=== PATIENT | female | born 1980 | race Caucasian/White ===

== ENCOUNTER → 2017-11-26 | Outpatient (CLI) | payer BC ==
[~2017-11-26] MED LIST: AGM875T PO
--- NOTE | 2017-11-26 13:12 | Diagnostic Imaging Report ---
EXAMINATION: Digital mammogram bilateral screening with 3D tomosynthesis and CAD. INDICATION: Screening. COMPARISON: This is the patient's baseline study. PERSONAL HISTORY: At this time, there are no current complaints. FINDINGS: The fibroglandular tissue in both breasts is heterogeneously dense. This does limit the sensitivity of this exam. There is no primary or secondary sign of malignancy noted. There is a small benign-appearing nodular density in the upper-outer aspect of the right breast. This may represent a lymph node. IMPRESSION: 1. There is no evidence for malignancy. 2. The patient should have her annual bilateral screening mammography on schedule in November 2018. ACR BI-RADS Category 1: Negative. Result letter will be mailed to the patient. Note: At least 10% of breast cancer is not imaged by mammography. Dictated by: Dictated on workstation # [id number]
== END ==
LOC: RAD 07:46
PROVIDERS: ATTEND Obstetrics & Gynecology
DX: Z12.31 Encounter for screening mammogram for malignant neoplasm of breast (principal); Z80.3 Family history of malignant neoplasm of breast
CPT/HCPCS: 77067

== ENCOUNTER → 2018-01-20 | Outpatient (CLI) | payer BC ==
--- NOTE | 2018-01-20 08:44 | Diagnostic Imaging Report ---
PROCEDURE: US Thyroid. TECHNIQUE: Multiple real-time grayscale images were obtained of the thyroid in various projections. INDICATION: Abnormal weight gain. FINDINGS: The right lobe of the thyroid measures 5.4 x 1.8 x 1.8 cm and the left lobe measures 5.3 x 1.7 x 1.6 cm. Both lobes demonstrate a homogeneous echotexture. No discrete thyroid mass is detected. IMPRESSION: Unremarkable thyroid ultrasound. Dictated by: Dictated on workstation # [id number]
== END ==
LOC: RAD 07:57
PROVIDERS: ATTEND Family Medicine
DX: R63.5 Abnormal weight gain (principal); F41.9 Anxiety disorder, unspecified
CPT/HCPCS: 76536

== ENCOUNTER → 2018-11-20 | Outpatient (CLI) | payer BC ==
--- NOTE | 2018-11-20 19:23 | Diagnostic Imaging Report ---
INDICATION: Screening. Digital mammogram bilateral screening with 3D tomosynthesis. The current study was also evaluated with a Computer Aided Detection (CAD) system. This study was compared to the prior exam of 11/26/2017. At this time, there are no current complaints. FINDINGS: The fibroglandular tissue in both breasts is heterogeneously dense. This does limit the sensitivity of this exam. Overall, there does not appear to have been any significant change when compared to the prior study. No primary or secondary sign of malignancy is noted. 3D tomographic images fail to show any sign of malignancy. IMPRESSION: There is no radiographic evidence for malignancy. ACR BI-RADS Category 1: Negative. Result letter will be mailed to the patient. Note: At least 10% of breast cancer is not imaged by mammography. Dictated by: Dictated on workstation # [id number]
== END ==
LOC: RAD 07:26
PROVIDERS: ATTEND Obstetrics & Gynecology
DX: Z12.31 Encounter for screening mammogram for malignant neoplasm of breast (principal); Z80.3 Family history of malignant neoplasm of breast
CPT/HCPCS: 77067

== ENCOUNTER → 2021-10-29 | Outpatient (CLI) | payer BC ==
--- NOTE | 2021-10-29 10:02 | Diagnostic Imaging Report ---
INDICATION: Routine screening. COMPARISON: 11/20/2018 and 11/26/2017. TECHNIQUE: 2D and 3D bilateral screening mammography was performed with CAD. FINDINGS: Both breasts are heterogeneously dense, limiting the sensitivity of mammography. A circumscribed benign nodule in the outer right breast appears stable. No spiculated mass or malignant-appearing microcalcifications are seen. The axillae are unremarkable. IMPRESSION: No mammographic features suspicious for malignancy are identified. ACR BI-RADS Category 2: Benign findings. Result letter will be mailed to the patient. Note: At least 10% of breast cancer is not imaged by mammography. Dictated by: Dictated on workstation # [id number]
== END ==
LOC: RAD 08:30
PROVIDERS: ATTEND Obstetrics & Gynecology
DX: Z12.31 Encounter for screening mammogram for malignant neoplasm of breast (principal)
CPT/HCPCS: 77063; 77067

== ENCOUNTER 2022-06-17 07:44 | Outpatient (CLI) | payer BC ==
[~2022-06-17] VITALS: Ht 160 cm; Wt 84.3 kg
[2022-06-17 08:20] VITALS: BP 140/63
[2022-06-17 08:39] LABS: BILIRUBIN,URINE NEGATIVE (NEGATIVE); CLARITY,URINE CLEAR; COLOR,URINE YELLOW; GLUCOSE, URINE (UA) NEGATIVE (NEGATIVE); KETONES,URINE NEGATIVE (NEGATIVE); LEUKOCYTE ESTERASE ,URINE 3+ (NEGATIVE); NITRITE,URINE NEGATIVE (NEGATIVE); PH,URINE 6.5 (5-9); PROTEIN,URINE NEGATIVE (NEGATIVE)
[2022-06-17] MEDS ORDERED: D5 LR IV SOLUTION 1,000 ML IV SCH (08:45)
[2022-06-17 08:55] VITALS: BP 118/61
[2022-06-17 08:56] LABS: BACTERIA,URINE FEW /HPF
--- NOTE | 2022-06-18 08:37 | Physician Query-Final Dx ---
LORRI,06/18/22 0837: Clinic Account Progress/Dx Physician Query: Please give diagnosis Please include # weeks gestation Date of Service Jun 17, 2022 at 07:44 PACO LUNDY MD 06/18/22 1850: Clinic Account Progress/Dx DIAGNOSIS: Diagnosis 31 weeks with false labor LORRI,JulJun 18, 2022 08:37 PACO LUNDY MD Jun 18, 2022 18:50
== END 2022-06-17 12:42 | disposition home or self-care (01) ==
LOC: LDRP 07:44 → WSo 07:44
PROVIDERS: ATTEND Obstetrics & Gynecology
DX: O47.03 False labor before 37 completed weeks of gestation, third trimester (principal); R42 Dizziness and giddiness; Z3A.31 31 weeks gestation of pregnancy
CPT/HCPCS: 81000; 87077; 87088; 93005

== ENCOUNTER → 2022-06-26 | Outpatient (CLI) | payer BC | LOC: CARD 11:38 | PROVIDERS: ATTEND Internal Medicine Cardiovascular Disease | DX: O99.413 Diseases of the circulatory system complicating pregnancy, third trimester (principal); I51.7 Cardiomegaly; Z3A.33 33 weeks gestation of pregnancy | CPT/HCPCS: 93306 ==

== ENCOUNTER → 2022-07-08 | Outpatient (CLI) | payer BC | LOC: LABNPT 12:23 | PROVIDERS: ATTEND Obstetrics & Gynecology | DX: R80.9 Proteinuria, unspecified (principal) | CPT/HCPCS: 82570; 84156 ==

== ENCOUNTER 2022-07-15 00:18 | Inpatient (IN) | payer BC ==
[~2022-07-15] VITALS: Ht 160 cm; Wt 85.3 kg
[2022-07-15] VITALS (15 sets, daily range): BP systolic 108–147; BP diastolic 56–73
[2022-07-15] MEDS ORDERED: AMPICILLIN FOR IV USE 2,000 MG in NS (IVPB) 50 ML IV SCH (00:32)
[2022-07-15] MEDS ORDERED: SERT50TA2 PO (00:32)
[2022-07-15] MEDS ORDERED: ASPI-999 PO (00:32)
[2022-07-15] MEDS ORDERED: PREN1TAB79 PO (00:32)
[2022-07-15] MEDS ORDERED: D5 LR IV SOLUTION 1,000 ML IV SCH (00:45)
[2022-07-15] MEDS ORDERED: AMPICILLIN 2,000 MG/14.8 ML (IV USE) ONE ×2 (00:48→00:53)
[2022-07-15] MEDS ORDERED: NS (IVPB) 50 ML ONE ×2 (00:51→00:53)
[2022-07-15] MEDS ORDERED: fentaNYL 2 mcg/ml BUPIVA 0.125 100 ML ONE (00:58)
[2022-07-15 01:12] LABS: BASOPHILS % (AUTO) 0 % (0-10); EOSINOPHILS # (AUTO) 0.1 10^3/uL (0.0-0.3); EOSINOPHILS % (AUTO) 1 % (0-10); HEMATOCRIT 35 % (35-52); HEMOGLOBIN 11.2 g/dL (11.5-16.0); LYMPHOCYTES # (AUTO) 2.3 10^3/uL (1.0-4.0); LYMPHOCYTES % (AUTO) 24 % (12-44); MEAN CORPUSCULAR HEMOGLOBIN 27 pg (25-34); MEAN CORPUSCULAR HGB CONC 32 g/dL (32-36); MEAN CORPUSCULAR VOLUME 82 fL (80-99); MEAN PLATELET VOLUME 11.3 fL (9.0-12.2); MONOCYTES # (AUTO) 0.7 10^3/uL (0.0-1.0); MONOCYTES % (AUTO) 8 % (0-12); NEUTROPHILS # (AUTO) 6.4 10^3/uL (1.8-7.8); NEUTROPHILS % (AUTO) 67 % (42-75); PLATELET COUNT 273 10^3/uL (130-400); WHITE BLOOD COUNT 9.5 10^3/uL (4.3-11.0)
[2022-07-15] MEDS ORDERED: LIDOCAINE PF 2% 5 ML (XYLOCAINE) VIAL ONE (01:47)
[2022-07-15] MEDS ORDERED: fentaNYL INJ 100 MCG/2 ML AMP ONE (01:47)
[2022-07-15] MEDS ORDERED: LACTATED RINGERS 1,000 ML IV SCH (02:30)
[2022-07-15] MEDS ORDERED: METOCLOPRAMIDE INJ 10 MG/2 ML (REGLAN) IV PRN (02:30)
[2022-07-15] MEDS ORDERED: ONDANSETRON 4 MG/2 ML (SDV) Z0FRAN IV PRN (02:30)
[2022-07-15] MEDS ORDERED: fentaNYL 2 mcg/ml BUPIVA 0.125 100 ML EPI SCH (02:30)
[2022-07-15] MEDS ORDERED: diphenhydrAMINE 50 MG/ML INJ (BENADRYL) IV PRN (02:30)
[2022-07-15] MEDS ORDERED: NALOXONE 0.4 MG/ML 1 ML (NARCAN) VIAL IV PRN ×2 (02:30)
[2022-07-15] MEDS ORDERED: OXYTOCIN PRE-MIX DRIP 500 ML IV ONE (03:01)
--- NOTE | 2022-07-15 04:33 | History & Physical ---
History and Physical Date Seen by Provider: Jul 15, 2022 Time Seen by Provider: 04:29 This patient is a 42-year-old 3 para 2 female currently at 35 weeks gestation in a complicated by PIH and gestational diabetes type A1. She presented in the early hours of the morning with complaint of spontaneous rupture of membranes and early labor. She was about 5 cm dilated on admission. She progressed relatively rapidly and has now delivered by spontaneous vaginal livery. This patient is further complicated by advanced maternal age. GBS culture has not been obtained as patient only now obtained 35 weeks gestation. On admission she was started on ampicillin for GBS prophylaxis. Allergies are none Medications are vitamins Medical social and surgical histories are per the antepartum record HEENT exam is normal Neck is supple no lymphadenopathy no thyromegaly Abdomen is gravid soft nontender nondistended Extremities show no clubbing or cyanosis. There is no Homans' sign. Pelvic exam on my arrival showed a cervix completely dilated vertex presentation +2 to +3 station with gross ROM. monitor showed a normal/category 1 heart rate pattern with contractions every 2 to 3 minutes. Laboratory Tests Test 07/15/22 00:45 07/15/22 01:26 07/15/22 03:37 Range/Units White Blood Count 9.5 4.3-11.0 10^3/uL Red Blood Count 4.23 3.80-5.11 10^6/uL Hemoglobin 11.2 L 11.5-16.0 g/dL Hematocrit 35 35-52 % Mean Corpuscular Volume 82 80-99 fL Mean Corpuscular Hemoglobin 27 25-34 pg Mean Corpuscular Hemoglobin Concent 32 32-36 g/dL Red Cell Distribution Width 15.1 H 10.0-14.5 % Platelet Count 273 130-400 10^3/uL Mean Platelet Volume 11.3 9.0-12.2 fL Immature Granulocyte % (Auto) 1 % Neutrophils (%) (Auto) 67 42-75 % Lymphocytes (%) (Auto) 24 12-44 % Monocytes (%) (Auto) 8 0-12 % Eosinophils (%) (Auto) 1 0-10 % Basophils (%) (Auto) 0 0-10 % Neutrophils # (Auto) 6.4 1.8-7.8 10^3/uL Lymphocytes # (Auto) 2.3 1.0-4.0 10^3/uL Monocytes # (Auto) 0.7 0.0-1.0 10^3/uL Eosinophils # (Auto) 0.1 0.0-0.3 10^3/uL Basophils # (Auto) 0.0 0.0-0.1 10^3/uL Immature Granulocyte # (Auto) 0.1 0.0-0.1 10^3/uL Glucose Level 83 70-105 MG/DL Glucometer 112 H 70-110 MG/DL Assessment and plan 35 weeks gestation with P PROM and labor complicated by PIH/AMA/gestational diabetes type A1 .See delivery note 35 weeks gestation with P PROM and labor Allergies and Home Medications Allergies Coded Allergies: No Known Drug Allergies (Unverified , 07/15/22) Patient Home Medication List Home Medication List Reviewed: Yes Aspirin (Aspirin) 81 Mg Tab.chew, 81 MG PO DAILY, (Reported) Entered as Reported by: OMAR DALEY on 07/15/2231 Last Action: New Order Vit W-Ca,Fe,FA(<1 mg) ( Vitamins) 27 Mg Iron-800 Mcg Tablet, 1 EACH PO DAILY, (Reported) Entered as Reported by: OMAR DALEY on 07/15/2231 Last Action: New Order Sertraline HCl (Zoloft) 50 Mg Tablet, 50 MG PO DAILY, (Reported) Entered as Reported by: OMAR DALEY on 07/15/2231 Last Action: New Order Discontinued Medications Amoxicillin/Clavulanate K (Augmentin 875 Mg Tablet) 875 Mg Tab, 1 TAB PO BID Discontinued Reason: No Longer Taking Prescribed by: YOVANI MASON on 08/27/14 8840 Last Action: Discontinued PACO LUNDY MD Jul 15, 2022 04:33
[2022-07-15] MEDS ORDERED: DOCU-143 PO (04:38)
[2022-07-15] MEDS ORDERED: IBUP-1780 PO (04:38)
[2022-07-15] MEDS ORDERED: OXYC-199 PO (04:38)
--- NOTE | 2022-07-15 04:38 | Discharge Inst-Surgical ---
Discharge Inst-Surgical Depart Medication/Instructions New, Converted or Re-Newed RX: Other Consults/Follow Up Orders & Referrals Follow Up Appt: Call to make follow up appt. for patient in 4 weeks. Activity Per routine post vaginal delivery instructions. Diet as tolerated Patient may shower or tub bathe as desired. Activity Activity as Tolerated: No Diet Discharge Diet: No Restrictions PACO LUNDY MD Jul 15, 2022 04:38
--- NOTE | 2022-07-15 04:41 | OB Labor & Delivery Record ---
Labor & Delivery This patient delivered by spontaneous vaginal delivery at 35+ weeks gestation a viable female with Apgars of 6 7 and 9 at 1 5 and 10 minutes respectively. The was delivered over first-degree perineal laceration under epidural analgesia. was bulb suctioned on delivery of the head again on completion of delivery. Dr. Camara was on hand at time of delivery. Umbilical cord when pulselesss was doubly clamped the father cut the cord the baby was passed to mom's abdomen. Cord bloods were obtained. The placenta delivered spontaneously Nena it was normal with a three-vessel cord. The cervix rectum perineum and vagina were examined and found intact except for a first-degree perineal laceration that was repaired with a single suture of 3-0 Vicryl Rapide in the usual manner. Hemostasis was complete. Sponge and needle counts were correct after delivery of the repair. Blood loss was around 150 cc. Patient tolerated delivery and repair well remained in the LDR the baby remained with the mom. PACO LUNDY MD Jul 15, 2022 04:41
[2022-07-15] MEDS ORDERED: ONDANSETRON 4 MG/2 ML (SDV) Z0FRAN IVP PRN (04:45)
[2022-07-15] MEDS ORDERED: KETOROLAC 30 MG/ML VIAL IV SCH (04:45)
[2022-07-15] MEDS ORDERED: BENZOCAINE/MENTHOL (DERMOPLAST) 56 ML CAN TP PRN (04:45)
[2022-07-15] MEDS ORDERED: oxyCODONE/APAP 5/325MG (PERCOCET 5) TABLET PO PRN (04:45)
[2022-07-15] MEDS ORDERED: OXYTOCIN PRE-MIX DRIP 500 ML IV SCH (04:45)
[2022-07-15] MEDS ORDERED: AMPICILLIN FOR IV USE 1,000 MG in NS (IVPB) 50 ML IV SCH (05:00)
[2022-07-15] MEDS ORDERED: CATHETER FLUSH 10 ML SYR IV SCH (06:00)
[2022-07-15] MEDS ORDERED: FLU QUADRIvalent (6 months+) 60 mcg/0.5 ml 2022-23 (Fluzone) IM ONE (08:00)
[2022-07-15] MEDS: DOCUSATE SODIUM 100 MG (COLACE) CAP PO SCH ×2 (09:09→21:30)
[2022-07-15] MEDS: IBUPROFEN 800 MG (MOTRIN) TAB PO SCH ×2 (11:48→17:57)
[2022-07-15] MEDS ORDERED: ENOXAPARIN INJECTION 30 MG/0.3 ML SYR SC ONE (15:00)
[2022-07-16] MEDS: IBUPROFEN 800 MG (MOTRIN) TAB PO SCH ×4 (00:22→18:33)
[2022-07-16 02:35] VITALS: BP 123/73
[2022-07-16] MEDS: DOCUSATE SODIUM 100 MG (COLACE) CAP PO SCH ×2 (08:09→23:31)
--- NOTE | 2022-07-16 08:09 | Progress Note ---
Standard Progress Note Progress Notes/Assess & Plan Date Seen by a Provider: Jul 16, 2022 Time Seen by a Provider: 08:07 Progress/Assessment & Plan This patient is without complaint except for some persistent right calf pain. She denies nausea or vomiting and denies headache and she denies shortness of breath. Patient is ambulating and voiding well. She has normal lochia. Vital Signs Date Time Temp Pulse Resp B/P (MAP) Pulse Ox O2 Delivery O2 Flow Rate FiO2 07/16/22 02:35 36.1 86 18 123/73 (90) 98 Room Air 07/15/22 21:30 36.8 94 18 127/62 (83) 98 Room Air 07/15/22 18:03 36.7 88 18 135/69 (91) 07/15/22 12:00 36.4 91 18 129/61 (83) Vital signs are stable. Patient is afebrile. The abdomen is benign. Fundus is firm below the umbilicus and nontender. Extremities show no clubbing or cyanosis. Right calf is equivocal for Homans' sign. Assessment and plan day #1. Patient did experience calf pain and a Homans' sign yesterday sonography was not available for rule out DVT therefore patient was given a dose of Lovenox subcu and Doppler studies are being obtained this morning. If positive she will continue on anticoagulation if negative we will discontinue the anticoagulation reassured the patient. Patient will continue with routine convalescent care and may be discharged home today or tomorrow as she prefers Final Diagnosis 35-week spontaneous vaginal delivery PACO LUNDY MD Jul 16, 2022 08:09
[2022-07-16 08:15] VITALS: BP 120/59
--- NOTE | 2022-07-16 08:36 | Diagnostic Imaging Report ---
PROCEDURE: US right lower extremity venous. TECHNIQUE: Multiple real-time grayscale images were obtained over the right lower extremity in various projections. Additional spectral analysis and color Doppler duplex images were also obtained. INDICATION: Right lower extremity pain . FINDINGS: Right lower extremity venous system showed normal color flow, normal compressibility and normal waveforms. Venous pulsatility normal. No deep or superficial thrombus. No mass or fluid collection documented. IMPRESSION: Normal negative unilateral right lower extremity venous Doppler and ultrasound exam. Dictated by: Dictated on workstation # [id number]
--- NOTE | 2022-07-16 08:51 | Anesthesia-Regional Post-Op ---
Regional Patient Condition Mental Status: Alert, Oriented x3 Circulation: Same as Pre-Op Headache: Absent Sensation: Full Recovery Motor Block: Absent Post Op Complications Complications None Follow Up Care/Instructions Patient Instructions None needed. Anesthesia/Patient Condition Patient is doing well, no complaints, stable vital signs, no apparent adverse anesthesia problems. No complications reported per nursing. [place] [facility] [place] Yes SHAYY SCALES CRNA Jul 16, 2022 08:51
[2022-07-16 12:00] VITALS: BP 123/58
[2022-07-16 16:00] VITALS: BP 137/60
[2022-07-16] MEDS ORDERED: FLU QUADRIvalent (6 months+) 60 mcg/0.5 ml 2022-23 (Fluzone) IM ONE (16:30)
[2022-07-16 23:35] VITALS: BP 125/70
[2022-07-17] MEDS: IBUPROFEN 800 MG (MOTRIN) TAB PO SCH ×3 (00:15→11:55)
[2022-07-17 06:15] VITALS: BP 138/68
--- NOTE | 2022-07-17 08:01 | Progress Note ---
Standard Progress Note Progress Notes/Assess & Plan Date Seen by a Provider: Jul 17, 2022 Time Seen by a Provider: 08:00 Progress/Assessment & Plan This patient is without complaint except for some persistent right calf pain. She denies nausea or vomiting and denies headache and she denies shortness of breath. Patient is ambulating and voiding well. She has normal lochia. Vital Signs Date Time Temp Pulse Resp B/P (MAP) Pulse Ox O2 Delivery O2 Flow Rate FiO2 07/16/22 02:35 36.1 86 18 123/73 (90) 98 Room Air 07/15/22 21:30 36.8 94 18 127/62 (83) 98 Room Air 07/15/22 18:03 36.7 88 18 135/69 (91) 07/15/22 12:00 36.4 91 18 129/61 (83) Vital signs are stable. Patient is afebrile. The abdomen is benign. Fundus is firm below the umbilicus and nontender. Extremities show no clubbing or cyanosis. Right calf is equivocal for Homans' sign. Assessment and plan day #1. Patient did experience calf pain and a Homans' sign yesterday sonography was not available for rule out DVT therefore patient was given a dose of Lovenox subcu and Doppler studies are being obtained this morning. If positive she will continue on anticoagulation if negative we will discontinue the anticoagulation reassured the patient. Patient will continue with routine convalescent care and may be discharged home today or tomorrow as she prefers July 17, 2022 Patient is without complaint. She is ambulating, voiding, tolerating oral intake well and has good pain control. Vital Signs Date Time Temp Pulse Resp B/P (MAP) Pulse Ox O2 Delivery O2 Flow Rate FiO2 07/17/22 06:15 36.6 88 16 138/68 (91) 99 Room Air 07/16/22 23:35 37.0 83 16 125/70 (88) 98 Room Air 07/16/22 16:00 36.6 85 18 137/60 (85) 97 Room Air 07/16/22 12:00 36.9 85 18 123/58 (79) 98 Room Air 07/16/22 08:15 37.1 82 18 120/59 (79) 98 Room Air Signs are stable. Patient is afebrile. The abdomen is benign. The fundus is firm below the umbilicus and nontender. Extremities show no clubbing or cyanosis. There is no Homans' sign. Assessment and plan day #2 status post return spontaneous vaginal livery at 35+ weeks gestation. Plan is for discharge home with follow-up in clinic Final Diagnosis 35-week spontaneous vaginal delivery PACO LUNDY MD Jul 17, 2022 08:01
[2022-07-17 09:30] VITALS: BP 136/63
[2022-07-17] MEDS: DOCUSATE SODIUM 100 MG (COLACE) CAP PO SCH (09:59)
[2022-07-17 14:00] VITALS: BP 129/58
[2022-07-17 16:55] VITALS: BP 129/58
== END 2022-07-17 16:55 | disposition home or self-care (01) | DRG 805 ==
LOC: WSo 00:18 → LDRP 00:19
PROVIDERS: ADMIT Obstetrics & Gynecology; ATTEND Obstetrics & Gynecology
PROC: 10E0XZZ Delivery of Products of Conception, External Approach (ICD-10-PCS; principal; 2022-07-15)
PROC: 0HQ9XZZ Repair Perineum Skin, External Approach (ICD-10-PCS; 2022-07-15)
DX: O24.429 Gestational diabetes mellitus in childbirth, unspecified control (principal); O60.23X0 Term delivery with preterm labor, third trimester, not applicable or unspecified; Z37.0 Single live birth; Z3A.35 35 weeks gestation of pregnancy; Z79.82 Long term (current) use of aspirin; Z79.899 Other long term (current) drug therapy; O13.4 Gestational [pregnancy-induced] hypertension without significant proteinuria, complicating childbirth
CPT/HCPCS: 36415; 82947; 85025; 86780; 86850; 86900; 86901; 90686; 99212

== ENCOUNTER → 2023-03-03 | Outpatient (CLI) | payer BC ==
[~2023-03-03] MED LIST changes: +ASPI-999 PO; +DOCU-143 PO; +IBUP-1780 PO; +OXYC-199 PO; +PREN1TAB79 PO; +SERT50TA2 PO
--- NOTE | 2023-03-03 12:47 | Diagnostic Imaging Report ---
PROCEDURE: US Thyroid. TECHNIQUE: Multiple real-time grayscale images were obtained of the thyroid in various projections. INDICATION: Follow-up thyroid. Hyperthyroidism. COMPARISON: 01/20/2018. FINDINGS: Both thyroid lobes demonstrate smooth and homogenous background echotexture. There are no focal lesions seen. Color flow Doppler demonstrates normal and symmetric vascularity bilaterally. The right lobe measures 6.0 cm in length, 1.9 cm AP, and 1.5 cm transverse. The left lobe measures 5.7 cm in length, 1.6 cm AP, and 1.7 cm transverse. The isthmus measures 0.3 cm. IMPRESSION: 1. Nonspecific thyromegaly. No focal thyroid lesions. Recommend correlation with TSH levels and follow-up as indicated. Dictated by: Dictated on workstation # [id number]
== END ==
LOC: RAD 08:41
PROVIDERS: ATTEND Nurse Practitioner Family
DX: E01.0 Iodine-deficiency related diffuse (endemic) goiter (principal)
CPT/HCPCS: 76536